=== PATIENT | female | born 1965 | race Caucasian/White ===

== ENCOUNTER 2021-12-21 13:09 | Emergency (ER) | payer BC | END 2021-12-21 13:50 | disposition home or self-care (01) | LOC: NAV ERS 13:09 | DX: U07.1 COVID-19 (principal); F17.210 Nicotine dependence, cigarettes, uncomplicated | CPT/HCPCS: 71045; U0003; U0005 ==

== ENCOUNTER 2022-05-07 17:16 | Emergency (ER) | payer BC ==
[2022-05-07] MEDS ORDERED: Dexamethasone 4 MG TAB ONE (18:23)
== END 2022-05-07 18:29 | disposition home or self-care (01) ==
LOC: NAV ERS 17:16
DX: J10.1 Influenza due to other identified influenza virus with other respiratory manifestations (principal); F17.210 Nicotine dependence, cigarettes, uncomplicated; Z20.822 Contact with and (suspected) exposure to COVID-19
CPT/HCPCS: 87804; 99283; J8540; U0003; U0005

== ENCOUNTER 2023-07-03 17:36 | Emergency (ER) | payer BC ==
[2023-07-03] MEDS ORDERED: Ketorolac Tromethamine 30 MG (1 mL) VIAL ONE (19:12)
[2023-07-03] MEDS ORDERED: Boostrix 0.5 ML (Tdap) VIAL (>/=7 yrs of age) ONE (19:13)
== END 2023-07-03 20:05 | disposition home or self-care (01) ==
LOC: NAV ERS 17:36
DX: S80.922A Unspecified superficial injury of left lower leg, initial encounter (principal); M54.50 Low back pain, unspecified; F17.210 Nicotine dependence, cigarettes, uncomplicated; W01.198A Fall on same level from slipping, tripping and stumbling with subsequent striking against other object, initial encounter; Z23 Encounter for immunization
CPT/HCPCS: 72100; 72170; 90471; 90715; 96372; J1885

== ENCOUNTER 2024-04-01 19:36 | Emergency (ER) | payer BC ==
[2024-04-01] MEDS ORDERED: Ibuprofen 200 MG TAB ONE (20:02)
== END 2024-04-01 20:56 | disposition home or self-care (01) ==
LOC: NAV ERS 19:36
DX: J10.1 Influenza due to other identified influenza virus with other respiratory manifestations (principal); F17.210 Nicotine dependence, cigarettes, uncomplicated
CPT/HCPCS: 87400; 87426; 99283

== ENCOUNTER 2025-01-14 12:28 | Emergency (ER) | payer BC, SELFPAY ==
[2025-01-14] MEDS ORDERED: Acetaminophen 500 MG TAB ONE (12:51)
[2025-01-14] MEDS ORDERED: Naproxen 500 MG TAB ONE (13:43)
== END 2025-01-14 13:45 | disposition home or self-care (01) ==
LOC: NAV ERS 12:28
DX: S06.0X0A Concussion without loss of consciousness, initial encounter (principal); S80.01XA Contusion of right knee, initial encounter; F17.210 Nicotine dependence, cigarettes, uncomplicated; W01.0XXA Fall on same level from slipping, tripping and stumbling without subsequent striking against object, initial encounter
CPT/HCPCS: 70450; Q0162